=== PATIENT | male | born 1995 | race African-American/Black ===

== ENCOUNTER 2025-04-08 04:41 | Emergency (ER) | payer OTHER, SELFPAY ==
[2025-04-08 04:45] VITALS: BP 119/80
[2025-04-08 05:15] VITALS: BP 132/71
[2025-04-08] MEDS: DECADRON 10 MG IV (05:30)
[2025-04-08 05:31] LABS: Hematocrit 42.0 % (39.0-52.0); Hemoglobin 13.6 g/dL (13.0-18.0); Mean Corp Hgb Conc. 32.4 g/dL (33.0-37.0); Mean Corpuscular Volume 87.7 fL (80.0-94.0); Nucleated Red Blood Cells % 0 % (-); Platelet Count 203 10^3/uL (130-400); Red Cell Dist. Width 12.5 % (11.5-14.5)
[2025-04-08 05:55] LABS: ALT (SGPT) 11 U/L (0-50); AST (SGOT) 15 U/L (17-59); Albumin 4.2 g/dl (3.5-5.0); Alkaline Phosphatase 59 U/L (38-126); Blood Urea Nitrogen 12 mg/dl (9-20); Calcium 9.2 mg/dl (8.4-10.2); Carbon Dioxide 28 mmol/L (22-30); Chloride 105 mmol/L (98-107); Glucose 95 mg/dl (70-99); Potassium 4.1 mmol/L (3.5-5.1); Sodium 140 mmol/L (135-145); Total Protein 7.2 g/dl (6.3-8.2); eGFR > 60.00
[2025-04-08 05:59] LABS: C-Reactive Protein 39.40 mg/L (0.0-10.00)
[2025-04-08 06:56] VITALS: BP 118/67
--- NOTE | 2025-04-08 06:56 | ED.GENMED ---
History of Present Illness
<Carl Dawson, DO - Last Filed: 04/08/25 07:01>
General
Chief Complaint: Throat Problem
Source: patient
Exam Limitations: none
Time Seen by Provider: 04/08/25 04:57
Nursing documentation reviewed up to this point in time: agreed with
History of Present Illness
History of Present Illness:
Note:
CHIEF COMPLAINT(S)
Difficulty breathing due to airway constriction.
HISTORY OF PRESENT ILLNESS
The patient is a 29-year-old male with a recent history of airway obstruction, who experienced significant breathing difficulty approximately two hours prior to presentation. He was previously hospitalized for this issue in [place], where he
resides. Treatment in [place] included steroids and antibiotics. The patient�s family brought him closer to home for continued care, and noted that he had shown slight improvement over the last couple of days. However, the patient experienced a
recurrence of airway constriction tonight, prompting their visit to the emergency department. The patients symptoms include substantial difficulty in breathing, described as 'airway closing up,' which had transiently improved before the latest
exacerbation.
SOCIAL DETERMINANTS AFFECTING HEALTH
The patients family has relocated him to receive closer care, indicating a supportive family environment, as they expressed concern about his breathing difficulties and sought medical intervention promptly.
REVIEW OF SYSTEMS
- Respiratory: Difficulty breathing due to airway constriction.
PHYSICAL EXAM
General: Alert, no acute distress.
Skin: Warm, dry.
Head: Normocephalic, atraumatic.
Neck: Supple, trachea midline.
Eye Ears, nose, mouth and throat: Oral mucosa moist.
Cardiovascular: Normal peripheral perfusion, No edema.
Respiratory: Respirations are non-labored.
Gastrointestinal: Abdomen nondistended.
Back: Normal range of motion, Normal alignment.
Musculoskeletal: Normal range of motion, normal strength.
Neurological: Alert and oriented to person, place, time, and situation, No focal neurological deficit observed.
Psychiatric: Cooperative, appropriate mood & affect.
PROBLEM LIST
Acute:
- Airway constriction leading to difficulty breathing.
PLAN
The plan for the patient includes administering medications already started in previous care, with continued monitoring. The patient will be observed for any further immediate interventions needed due to airway constriction.
DIFFERENTIAL DIAGNOSIS
The Differential Diagnosis includes, in no particular order and is not limited to:
1. Anaphylaxis.
2. Asthma exacerbation.
3. Upper airway edema.
4. Vocal cord dysfunction.
5. Foreign body aspiration.
6. Epiglottitis.
7. Tracheal stenosis.
8. Laryngeal edema.
9. Angioedema.
10. Acute respiratory distress syndrome (ARDS).
Disposition:
SUMMARY OF ENCOUNTER
The patient, a 29-year-old male, presented to the emergency department with difficulty breathing due to a paratonsillar abscess. An abscess was confirmed, and it was decided that incision and drainage were necessary. The patient had taken a dose of
clindamycin prior to arrival. I consulted with Dr. Harvey Swain and Dr. Collazo from the ENT team, who agreed to perform the intervention. Care was then transitioned to the day shift physician for follow-up.
MANAGEMENT OF THE PATIENTS CARE WAS DISCUSSED WITH
Consultation with Dr. Harvey Swain and Dr. Collazo for ENT intervention regarding the drainage of the paratonsillar abscess.
PLAN
Administer clindamycin and arrange for the incision and drainage of the paratonsillar abscess by the ENT team.
MEDICATION RECONCILIATION
- Clindamycin was taken prior to arrival. Further dosing to be determined by the attending physician after abscess drainage.
MEDICAL DECISION MAKING
- Number and Complexity of Problems Addressed: Chronic conditions affecting care: Paratonsillar abscess.
- Data:
- Category 3: Discussion of management with Dr. Harvey Swain and Dr. Collazo regarding the drainage procedure.
DIAGNOSIS
Paratonsillar abscess (ICD-10: J36).
Past History
<Carl Dawson DO - Last Filed: 04/08/25 07:01>
Past History
ED Past Medical History: Asthma
ED Past Surgical History: None
Patient has exhibited threatening behavior?: No
PSI?: No
Social History
Tobacco: Non-smoker
Personal: Single
Living: with family
Employment: Student
Phy Exam
<Shay Manjarrez MD - Last Filed: 04/08/25 13:13>
Physical Exam
Physical Exam:
*
Course
<Carl Dawson DO - Last Filed: 04/08/25 07:01>
Orders/Labs/Results
Orders:
Orders
04/08/25 05:14
CT Neck With Iv Contrast Urgent
Comment:
Reason For Exam: throat swelling, trusmus
04/08/25 05:17
CRP [C-Reactive Protein] Urgent
Complete Blood Count/With Diff Urgent
Comprehensive Metabolic Panel Urgent
Sed Rate [Erythrocyte Sed Rate] Urgent
04/08/25 05:24
Dexamethasone Sod Phosphate [Decadron] 10 mg IV NOW STA
Abnormal Lab Results
04/08/25
05:17
MCHC 32.4 L g/dL
(33.0-37.0)
Absolute Monos (auto) 0.8 H 10^3/uL
(0.1-0.6)
AST 15 L U/L
(17-59)
C-Reactive Protein 39.40 H mg/L
(0.0-10.00)
04/08/25 05:17
04/08/25 05:17
Vital Signs
Initial and Last Documented VS:
Initial Vital Signs
Temp Pulse Resp BP Pulse Ox
98.6 F 73 20 119/80 100
04/08/25 04:45 04/08/25 04:45 04/08/25 04:45 04/08/25 04:45 04/08/25 04:45
Last Documented Vital Signs
Temp Pulse Resp BP Pulse Ox
98.6 F 78 16 118/67 98
04/08/25 04:45 04/08/25 07:07 04/08/25 06:56 04/08/25 06:56 04/08/25 07:00
Sophylt;Shay Manjarrez MD - Last Filed: 04/08/25 13:13>
Orders/Labs/Results
Orders:
Orders
04/08/25 05:14
CT Neck With Iv Contrast Urgent
Comment:
Reason For Exam: throat swelling, trusmus
04/08/25 05:17
CRP [C-Reactive Protein] Urgent
Complete Blood Count/With Diff Urgent
Comprehensive Metabolic Panel Urgent
Sed Rate [Erythrocyte Sed Rate] Urgent
04/08/25 05:24
Dexamethasone Sod Phosphate [Decadron] 10 mg IV NOW STA
Abnormal Lab Results
04/08/25
05:17
MCHC 32.4 L g/dL
(33.0-37.0)
Absolute Monos (auto) 0.8 H 10^3/uL
(0.1-0.6)
AST 15 L U/L
(17-59)
C-Reactive Protein 39.40 H mg/L
(0.0-10.00)
04/08/25 05:17
04/08/25 05:17
Vital Signs
Initial and Last Documented VS:
Initial Vital Signs
Temp Pulse Resp BP Pulse Ox
98.6 F 73 20 119/80 100
04/08/25 04:45 04/08/25 04:45 04/08/25 04:45 04/08/25 04:45 04/08/25 04:45
Last Documented Vital Signs
Temp Pulse Resp BP Pulse Ox
98.6 F 78 16 118/67 98
04/08/25 04:45 04/08/25 07:07 04/08/25 06:56 04/08/25 06:56 04/08/25 07:00
<Carl Dawson DO - Last Filed: 04/08/25 07:01>
*Pulse Oximetry
SaO2: 98
Oxygen Mode of Delivery: Room air
<Shay Manjarrez MD - Last Filed: 04/08/25 13:13>
*Pulse Oximetry
Patient hypoxic: no
*Critical Care Note
Total Time (30-74mins, 75-104mins- exclusive of procedures): Not Applicable
<Carl Dawson DO - Last Filed: 04/08/25 07:01>
Update Note
Update Note:
Care signed out to dayshift doc 7 AM
<Shay Manjarrez MD - Last Filed: 04/08/25 13:13>
Update Note
Update Note:
Care signed out to dayshift doc 7 AM
Discussed with (ENT) via [facility] - requests patient to be discharged to his office for I&D. Pt is afebrile, hemodynamically stable, and nontoxic appearing at time of discharge
ED Attending Note
<Carl Dawson DO - Last Filed: 04/08/25 07:01>
-
Portions of this chart may have been created with voice recognition software.� Occasional wrong word or��sound alike� substitutions may have occurred due to the inherent limitations of voice recognition software.
Discharge Plan
Departure
Patient Disposition: Home (Routine Discharge)
Date of Disposition: 04/08/25
Time of Disposition: 06:56
Patient with high blood pressure during this ER visit?: No
Condition: Good
Discharge Problem:
Abscess, peritonsillar
Instructions: Peritonsillar Abscess, Adult (DC)
Prescriptions:
No Action
prednisone 10 MG tablets,dose pack
10 mg PO DAILY
citalopram 20 MG tablet
40 mg PO DAILY
clarithromycin [Biaxin XL] 500 MG tablet extended release 24 hr
500 mg PO BID
naproxen sodium [Aleve] 220 MG tablet
440 mg PO Q6HPRN PRN (Reason: throat pain)
hydrocodone-acetaminophen [Vicodin] 1 EACH tablet
1 ea PO Q6HPRN PRN (Reason: throat pain)
clindamycin HCl 300 MG capsule
300 mg PO QID Qty: 56 0RF
Referrals:
ANNETTA ORELLANA [Other]
Fer Collazo MD [Active, Otology]
Activity Restrictions/Additional Instructions:
As discussed, please follow-up with referred ENT physician upon discharge for further evaluation and treatment
Interventions
Interventions:
*Risk Screen - Suicide Last Done: 04/08/25 04:45
*General Assessment Last Done: 04/08/25 04:45
*Neglect/Abuse Screening Last Done: 04/08/25 04:45
*ED- Fall Risk Assessment Last Done: 04/08/25 04:45
*ED COVID-19 Vaccine History Last Done: 04/08/25 04:45
*ED Influenza Vaccine History Last Done: 04/08/25 04:45
*Nursing Disposition Last Done: 04/08/25 08:12
ED-EENT Assessment Last Done: 04/08/25 07:13
ED- Pulmonary Assessment Last Done: 04/08/25 07:13
Discharge Date and Time
Discharge Date/Time: 04/08/25 07:55
Print Language: TONGAN
== END 2025-04-08 07:55 | disposition home or self-care (01) ==
LOC: EMR 04:41
PROVIDERS: EMERGENCY PHYSICIAN Student in an Organized Health Care Education/Training Program
DX: J36 Peritonsillar abscess (principal); J45.909 Unspecified asthma, uncomplicated
CPT/HCPCS: 99284; 42700; 96374; 70491; 80053; 85025; 85652; 86140; Q9967